=== PATIENT | male | born 1965 | race Caucasian/White ===

== ENCOUNTER 2018-12-03 20:32 | Emergency (ER) | payer SELFPAY ==
[2018-12-03] MEDS ORDERED: DIPHTH,PERTUSS(ACELL),TET 0.5 ML DISP.SYRIN IM ONE ×2 (20:45→21:42)
--- NOTE | 2018-12-03 20:45 | PDOC ---
Rapid Medical Evaluation Time Seen by Provider: 12/03/18 20:41 Medical Evaluation: Allergies Allergy/AdvReac Type Severity Reaction Status Date / Time No Known Allergies Allergy Verified 01/23/16 01:00 12/03/18 20:41 HPI: dog bite on L hand from unknown animal at park; PE: small puncture dorsum of L hand ORDERS: x-ray tetanus rabies series 12/03/18 20:42 12/03/18 20:44 Discharge Disposition - Diagnosis Dog bite - Referrals - Patient Instructions - Post Discharge Activity
[2018-12-03 20:50] VITALS: BP 121/81; PULSE 77; TEMP 98.6; BMI 28.3
[2018-12-03] MEDS ORDERED: RABIES IMMUNE GLOBULIN 300 UNITS/1 ML VIAL IM ONE (20:51)
[2018-12-03] MEDS ORDERED: RABIES VACCINE (PCEC)/PF 2.5 UNIT/VIAL IM ONE ×2 (20:51→21:42)
[2018-12-03] MEDS ORDERED: RABIES IMMUNE GLOBULIN 300 UNITS/1 ML VIAL ONE (21:42)
[2018-12-03] MEDS ORDERED: AMOX TR/POT CLAV 875MG/125MG TABLETS (FP) PO ONE (22:01)
[2018-12-03] MEDS ORDERED: AMOX TR/POT CLAV 875MG/125MG TABLETS (FP) ONE (22:11)
--- NOTE | 2018-12-03 22:13 | PDOC ---
History of Present Illness - General Chief Complaint: Bite Stated Complaint: DOG BITE Time Seen by Provider: 12/03/18 20:41 History Source: Patient - History of Present Illness Initial Comments: 12/03/18 22:32 Chief complaint: Dog bite Patient is a 53-year-old male with a history of elevated cholesterol who states he was at a park that he has been at before and was bitten by a dog, rafita that he went to pet. Pet was with an on but he did not know the technical publications writer. Patient came to the ER for further treatment. GENERAL/CONSTITUTIONAL: No fever, weakness. dizziness HEAD, EYES, EARS, NOSE AND THROAT: No change in vision. No ear pain or discharge. No sore throat. CARDIOVASCULAR: No chest pain RESPIRATORY: No shortness of breath or cough GASTROINTESTINAL: No pain, nausea, vomiting, diarrhea or constipation GENITOURINARY: No dysuria MUSCULOSKELETAL: No neck or back pain SKIN: No rash, + dog bite NEUROLOGIC: No headache, vertigo, loss of consciousness, or loss of sensation. GENERAL: The patient is awake, alert, and fully oriented, in no acute distress. HEAD: Normal with no signs of trauma. EYES: Pupils equal, round and reactive to light, sclera anicteric, conjunctiva clear. ENT: pharynx: no erythema, no exudate, uvula midline NECK: supple CHEST: clear, nontender, rr EXTREMITIES: Hand with puncture wound on the dorsum proximate middle, no other wounds, no erythema, no signs of infection, good range of motion, neurovascular intact. Rest of extremities, normal range of motion, no edema. NEUROLOGICAL: Normal speech, normal gait. SKIN: Warm, Dry Past History - Past Medical History Allergies/Adverse Reactions: Allergies Allergy/AdvReac Type Severity Reaction Status Date / Time No Known Allergies Allergy Verified 12/03/18 20:47 Home Medications: Ambulatory Orders Atorvastatin Ca [Lipitor] 10 mg PO HS 06/20/13 Ezetimibe [Zetia -] 10 mg PO DAILY 06/20/13 Oxycodone HCl/Acetaminophen [Percocet 5-325 mg Tablet] 1 - 2 tab PO Q6H #20 tab MDD 20 01/24/16 Amoxicillin/Potassium Clav [Augmentin 875-125 Tablet] 1 each PO BID #14 tablet 12/03/18 COPD: No Hypercholesterolemia: Yes - Surgical History Cholecystectomy: Yes - Immunization History Immunization Up to Date: Yes - Suicide/Smoking/Psychosocial Hx Smoking History: Never smoked Have you smoked in the past 12 months: No Number of Cigarettes Smoked Daily: 0 Information on smoking cessation initiated: No Hx Alcohol Use: No Drug/Substance Use Hx: No Substance Use Type: None Hx Substance Use Treatment: No *Physical Exam - Vital Signs Last Vital Signs Temp Pulse Resp BP Pulse Ox 98.6 F 77 18 121/81 96 12/03/18 20:47 12/03/18 20:47 12/03/18 20:47 12/03/18 20:47 12/03/18 20:47 Medical Decision Making - Medical Decision Making 12/03/18 22:34 53-year-old male who was bitten by a dog in the park, has seen the dog before, he went to pet the dog. Did not see the technical publications writer. Discussed with patient and protocol for rabies immunization. They filled out paperwork and they will call the police to assist in finding the dog, they will call the Department of Health are to discuss further. If they have any problems they will call me on Monday. Patient's tetanus was updated, x-ray was done which showed no foreign body or fracture. Patient was started on Augmentin and given wound care instructions Discussed issues, findings, results, applicable medications and treatments and follow-up. All these were understood and all questions were answered *DC/Admit/Observation/Transfer Diagnosis at time of Disposition: Dog bite - Prescriptions Prescriptions: Amoxicillin/Potassium Clav [Augmentin 875-125 Tablet] 1 each PO BID #14 tablet - Referrals - Patient Instructions Additional Instructions: Contact the police dept to assist finding the dog. call the dept of health at tomorrow to answer all your questions. Clean with soap and water 2-3 times daily, apply bacitracin take the augmentin 1 tablet every 12 hours for 7 days Have her reevaluated if redness, pus, fever or getting worse Followup with your doctor If you cannot get any answers by Monday, call here at [phone] after 10 AM and I will be happy to assist you - Post Discharge Activity
== END 2018-12-03 22:42 | disposition home or self-care (01) ==
LOC: JERFT 20:32
PROC: 3E0234Z Introduction of Serum, Toxoid and Vaccine into Muscle, Percutaneous Approach (ICD-10-PCS; principal; 2018-12-03)
DX: S61.452A Open bite of left hand, initial encounter (principal); W54.0XXA Bitten by dog, initial encounter; Y93.89 Activity, other specified; Y92.830 Public park as the place of occurrence of the external cause; Y99.8 Other external cause status
CPT/HCPCS: 73130-TC-LT-FY; 90715; 99282-25

== ENCOUNTER 2018-12-26 09:38 | Emergency (ER) | payer SELFPAY ==
[2018-12-26 09:44] VITALS: BP 139/80; PULSE 50; TEMP 97.5
[2018-12-26 10:00] VITALS: BMI 29.9
--- NOTE | 2018-12-26 10:00 | PDOC ---
History of Present Illness - General Chief Complaint: Bite Stated Complaint: DOG BITE Time Seen by Provider: 12/26/18 09:48 History Source: Patient Exam Limitations: No Limitations - History of Present Illness Initial Comments: 12/26/18 10:00 The patient is a 53 y/o M with no PMH who presents to the ER for rabies vaccinations s/p dog bite on 12/03/18. The police department, health department have not been able to track down the dog since the incident; therefore he meets criteria for rabies vaccinations. Spoke with Jess Dougherty at the Health Department to confirm. He finished his antibiotics as prescribed last time. Tetanus is UTD. He has no complaints at this time: A/P: Need for Rabies Vaccination Wound on the L hand is well healed with no evidence of celluitis Tetanus updated last visit Will initiate rabies vaccinations and immunoglobulin today as directed by the health department Pt given rabies schedule and he understands he needs to come back on schedule DC home I discussed the physical exam findings, ancillary test results and final diagnoses with the patient. I answered all of the patient's questions. The patient was satisfied with the care received and felt comfortable with the discharge plan and treatment plan. The Patient agrees to follow up with the primary care physician/specialist within 24-72 hours. Return precautions were given. Past History - Travel Traveled outside of the country in the last 30 days: No Close contact w/someone who was outside of country & ill: No - Past Medical History Allergies/Adverse Reactions: Allergies Allergy/AdvReac Type Severity Reaction Status Date / Time No Known Allergies Allergy Verified 12/26/18 09:44 Home Medications: Ambulatory Orders Atorvastatin Ca [Lipitor] 10 mg PO HS 06/20/13 Ezetimibe [Zetia -] 10 mg PO DAILY 06/20/13 Oxycodone HCl/Acetaminophen [Percocet 5-325 mg Tablet] 1 - 2 tab PO Q6H #20 tab MDD 20 01/24/16 Amoxicillin/Potassium Clav [Augmentin 875-125 Tablet] 1 each PO BID #14 tablet 12/03/18 COPD: No Hypercholesterolemia: Yes - Surgical History Cholecystectomy: Yes - Immunization History Immunization Up to Date: Yes - Psycho Social/Smoking Cessation Hx Smoking History: Never smoked Have you smoked in the past 12 months: No Number of Cigarettes Smoked Daily: 0 Hx Alcohol Use: Yes Drug/Substance Use Hx: No Substance Use Type: None Hx Substance Use Treatment: No Review of Systems - Review of Systems Able to Perform ROS?: Yes Comments:: 12/26/18 10:37 CONSTITUTIONAL: Absent: fever, chills, diaphoresis, generalized weakness, malaise, loss of appetite HEENT: Absent: rhinorrhea, nasal congestion, throat pain, throat swelling, difficulty swallowing, mouth swelling, ear pain, eye pain, visual Changes MUSCULOSKELETAL: Absent: myalgia, arthralgia, joint swelling SKIN: Present: bite Absent: rash, itching, pallor NEUROLOGIC: Absent: headache, focal weakness or paresthesias, dizziness, unsteady gait, seizure, mental status changes, bladder or bowel incontinence PSYCHIATRIC: Absent: anxiety, depression, suicidal or homicidal ideation, hallucinations. Is the patient limited Namibian proficient: No *Physical Exam - Vital Signs Last Vital Signs Temp Pulse Resp BP Pulse Ox 97.5 F L 50 L 16 139/80 96 12/26/18 09:41 12/26/18 09:41 12/26/18 09:41 12/26/18 09:41 12/26/18 09:41 - Physical Exam Comments: 12/26/18 10:44 GENERAL: The patient is awake, alert, and fully oriented, in no acute distress. HEAD: Normal with no signs of trauma. EYES: Pupils equal, round and reactive to light, extraocular movements intact, sclera anicteric, conjunctiva clear. EXTREMITIES: Normal range of motion, no edema. NEUROLOGICAL: Normal speech, normal gait. PSYCH: Normal mood, normal affect. SKIN: Healed pinpoint wound to the dorsal L hand. Warm, Dry, normal turgor, no rashes or lesions noted. Medical Decision Making - Medical Decision Making Medical Decision Making: Jess Dougherty Discharge - Discharge Information Problems reviewed: Yes Clinical Impression/Diagnosis: Need for rabies vaccination Dog bite Qualifiers: Encounter type: subsequent encounter Qualified Code(s): W54.0XXD - Bitten by dog, subsequent encounter Condition: Stable Disposition: HOME - Admission No - Follow up/Referral - Patient Discharge Instructions Patient Printed Discharge Instructions: DI for Rabies Vaccine Additional Instructions: Follow the rabies schedule attached to return for the rest of the rabies series Return to the ER sooner for any new or worsening symptoms Siga el horario de la cora adjunto para regresar para el markel de la serie de la cora. Regrese a la meche de emergencias antes por cualquier sntoma nuevo o que empeore Print Language: LATVIAN - Post Discharge Activity Work/Back to School Note: Rabies Vaccination F/U [facility].
[2018-12-26] MEDS ORDERED: RABIES VACCINE (PCEC)/PF 2.5 UNIT/VIAL IM ONE ×2 (10:20→10:42)
[2018-12-26] MEDS ORDERED: RABIES IMMUNE GLOBULIN 300 UNITS/1 ML VIAL IM ONE (10:20)
[2018-12-26] MEDS ORDERED: RABIES IMMUNE GLOBULIN 300 UNITS/1 ML VIAL ONE (10:42)
== END 2018-12-26 11:27 | disposition home or self-care (01) ==
LOC: JERFT 09:38
PROC: 3E0234Z Introduction of Serum, Toxoid and Vaccine into Muscle, Percutaneous Approach (ICD-10-PCS; principal; 2018-12-26)
DX: Z20.3 Contact with and (suspected) exposure to rabies (principal); W54.0XXD Bitten by dog, subsequent encounter
CPT/HCPCS: 90375; 90675; 99281-25

== ENCOUNTER 2018-12-29 10:25 | Emergency (ER) | payer SELFPAY ==
[2018-12-29 10:32] VITALS: BP 139/79; PULSE 62; TEMP 98.3; BMI 29.8
[2018-12-29] MEDS ORDERED: RABIES VACCINE (PCEC)/PF 2.5 UNIT/VIAL IM ONE ×2 (10:33→10:36)
--- NOTE | 2018-12-29 10:36 | PDOC ---
History of Present Illness - General Chief Complaint: Revisit,Rabies Injection Stated Complaint: RABIES VACCINE Time Seen by Provider: 12/29/18 10:32 History Source: Patient (Pt is here for rabies vaccines) Exam Limitations: No Limitations Past History - Travel Traveled outside of the country in the last 30 days: No Close contact w/someone who was outside of country & ill: No - Past Medical History Allergies/Adverse Reactions: Allergies Allergy/AdvReac Type Severity Reaction Status Date / Time No Known Allergies Allergy Verified 12/26/18 09:44 Home Medications: Ambulatory Orders Atorvastatin Ca [Lipitor] 10 mg PO HS 06/20/13 Ezetimibe [Zetia -] 10 mg PO DAILY 06/20/13 Oxycodone HCl/Acetaminophen [Percocet 5-325 mg Tablet] 1 - 2 tab PO Q6H #20 tab MDD 20 01/24/16 Amoxicillin/Potassium Clav [Augmentin 875-125 Tablet] 1 each PO BID #14 tablet 12/03/18 COPD: No Hypercholesterolemia: Yes - Surgical History Cholecystectomy: Yes - Immunization History Immunization Up to Date: Yes - Psycho Social/Smoking Cessation Hx Smoking History: Never smoked Have you smoked in the past 12 months: No Number of Cigarettes Smoked Daily: 0 Information on smoking cessation initiated: No Hx Alcohol Use: No Drug/Substance Use Hx: No Substance Use Type: None Hx Substance Use Treatment: No Review of Systems - Review of Systems Constitutional: No: Chills, Fever Musculoskeletal: No: Back Pain, Gout, Joint Pain Integumentary: No: Bruising, Dryness, Erythema, Rash *Physical Exam - Vital Signs Last Vital Signs Temp Pulse Resp BP Pulse Ox 98.3 F 62 16 139/79 98 12/29/18 10:27 12/29/18 10:27 12/29/18 10:27 12/29/18 10:27 12/29/18 10:27 - Physical Exam General Appearance: Yes: Nourished Extremity: positive: Other (L hand: no erythema or warmth/discharge in dorsum aspect) Integumentary: positive: Normal Color Neurologic: positive: firewall administrator II-XII NML intact, Fully Oriented, Alert Medical Decision Making - Medical Decision Making 12/29/18 10:36 s/p dog bite to L hand tetanus was updated pt is here for rabies vaccines no complaints he has finished abx course Discharge - Discharge Information Problems reviewed: No Clinical Impression/Diagnosis: Need for rabies vaccination Condition: Stable Disposition: HOME - Additional Discharge Information Prescription Drug Monitoring Program (I-STOP) results: I-STOP not reviewed - Follow up/Referral - Patient Discharge Instructions Patient Printed Discharge Instructions: DI for Rabies Vaccine Additional Instructions: Please return on 01/02/19 for your next vaccine - Post Discharge Activity
== END 2018-12-29 11:08 | disposition home or self-care (01) ==
LOC: JERFT 10:25
PROC: 3E0234Z Introduction of Serum, Toxoid and Vaccine into Muscle, Percutaneous Approach (ICD-10-PCS; principal; 2018-12-29)
DX: Z20.3 Contact with and (suspected) exposure to rabies (principal); W54.0XXD Bitten by dog, subsequent encounter
CPT/HCPCS: 90675; 99282-25

== ENCOUNTER 2019-01-02 16:30 | Emergency (ER) | payer SELFPAY ==
[2019-01-02] MEDS ORDERED: RABIES VACCINE (PCEC)/PF 2.5 UNIT/VIAL IM ONE ×2 (16:32→17:13)
--- NOTE | 2019-01-02 16:32 | PDOC ---
Rapid Medical Evaluation Time Seen by Provider: 01/02/19 16:31 Medical Evaluation: Allergies Allergy/AdvReac Type Severity Reaction Status Date / Time No Known Allergies Allergy Verified 12/26/18 09:44 01/02/19 16:31 CC: needs rabies vaccine PE: No focal findings Orders: rabies vaccine Patient will proceed to ER for further evaluation. Discharge Disposition - Diagnosis Need for rabies vaccination - Referrals - Patient Instructions - Post Discharge Activity
[2019-01-02 16:33] VITALS: BP 113/80; PULSE 69; TEMP 98; BMI 27.2
--- NOTE | 2019-01-02 17:10 | PDOC ---
History of Present Illness - General Chief Complaint: Revisit,Rabies Injection Stated Complaint: Rabies Vaccine Time Seen by Provider: 01/02/19 16:31 History Source: Patient Exam Limitations: No Limitations Past History - Travel Traveled outside of the country in the last 30 days: No Close contact w/someone who was outside of country & ill: No - Past Medical History Allergies/Adverse Reactions: Allergies Allergy/AdvReac Type Severity Reaction Status Date / Time No Known Allergies Allergy Verified 01/02/19 16:34 Home Medications: Ambulatory Orders Atorvastatin Ca [Lipitor] 10 mg PO HS 06/20/13 Ezetimibe [Zetia -] 10 mg PO DAILY 06/20/13 Oxycodone HCl/Acetaminophen [Percocet 5-325 mg Tablet] 1 - 2 tab PO Q6H #20 tab MDD 20 01/24/16 Amoxicillin/Potassium Clav [Augmentin 875-125 Tablet] 1 each PO BID #14 tablet 12/03/18 COPD: No Hypercholesterolemia: Yes - Surgical History Cholecystectomy: Yes - Immunization History Immunization Up to Date: Yes - Psycho Social/Smoking Cessation Hx Smoking History: Never smoked Have you smoked in the past 12 months: No Number of Cigarettes Smoked Daily: 0 Information on smoking cessation initiated: No Hx Alcohol Use: No Drug/Substance Use Hx: No Substance Use Type: None Hx Substance Use Treatment: No Review of Systems - Review of Systems Able to Perform ROS?: Yes Comments:: 01/02/19 17:08 CONSTITUTIONAL: Absent: fever, chills, diaphoresis, generalized weakness, malaise, loss of appetite HEENT: Absent: rhinorrhea, nasal congestion, throat pain, throat swelling, difficulty swallowing, mouth swelling, ear pain, eye pain, visual Changes CARDIOVASCULAR: Absent: chest pain, loss of consciousness, palpitations, irregular heart rate, peripheral edema RESPIRATORY: Absent: cough, shortness of breath, dyspnea with exertion, orthopnea, wheezing, stridor, hemoptysis GASTROINTESTINAL: Absent: abdominal pain, abdominal distension, nausea, vomiting, diarrhea, constipation, melena, hematochezia GENITOURINARY: Absent: dysuria, frequency, urgency, hesitancy, hematuria, flank pain, genital pain MUSCULOSKELETAL: Absent: myalgia, arthralgia, joint swelling SKIN: Absent: rash, itching, pallor HEMATOLOGIC/IMMUNOLOGIC: Absent: easy bleeding, easy bruising, lymphadenopathy, frequent infections ENDOCRINE: Absent: unexplained weight gain, unexplained weight loss, heat intolerance, cold intolerance NEUROLOGIC: Absent: headache, focal weakness or paresthesias, dizziness, unsteady gait, seizure, mental status changes, bladder or bowel incontinence PSYCHIATRIC: Absent: anxiety, depression, suicidal or homicidal ideation, hallucinations. Is the patient limited Montenegrin proficient: No *Physical Exam - Vital Signs Last Vital Signs Temp Pulse Resp BP Pulse Ox 98 F 69 18 113/80 99 01/02/19 16:32 01/02/19 16:32 01/02/19 16:32 01/02/19 16:32 01/02/19 16:32 - Physical Exam Comments: 01/02/19 17:08 GENERAL: The patient is awake, alert, and fully oriented, in no acute distress. HEAD: Normal with no signs of trauma. EYES: Pupils equal, round and reactive to light, extraocular movements intact, sclera anicteric, conjunctiva clear. EXTREMITIES: Normal range of motion, no edema. NEUROLOGICAL: Normal speech, normal gait. PSYCH: Normal mood, normal affect. SKIN: Warm, Dry, normal turgor, no rashes or lesions noted. Medical Decision Making - Medical Decision Making 01/02/19 17:08 The patient is a 53-year-old male who presents to the ER today for his third rabies vaccine. This is day 7 of treatment. He has no complaints at this time. A/P: Need for rabies vaccine Third dose of rabies vaccine given today. Last dose to be given 1 week from today. Discharge home I discussed the physical exam findings, ancillary test results and final diagnoses with the patient. I answered all of the patient's questions. The patient was satisfied with the care received and felt comfortable with the discharge plan and treatment plan. The Patient agrees to follow up with the primary care physician/specialist within 24-72 hours. Return precautions were given. Discharge - Discharge Information Problems reviewed: Yes Clinical Impression/Diagnosis: Need for rabies vaccination Condition: Stable Disposition: HOME - Admission No - Follow up/Referral - Patient Discharge Instructions Patient Printed Discharge Instructions: DI for Rabies Vaccine Additional Instructions: You received your third rabies vaccine today. Return on 01/11/19 for your last rabies vaccine. Return to the ER sooner for any new or worsening symptoms. - Post Discharge Activity
== END 2019-01-02 17:23 | disposition home or self-care (01) ==
LOC: JERFT 16:30
PROC: 3E0234Z Introduction of Serum, Toxoid and Vaccine into Muscle, Percutaneous Approach (ICD-10-PCS; principal; 2019-01-02)
DX: Z20.3 Contact with and (suspected) exposure to rabies (principal); Z23 Encounter for immunization; W54.0XXD Bitten by dog, subsequent encounter
CPT/HCPCS: 90675; 99281-25

== ENCOUNTER 2019-01-09 16:13 | Emergency (ER) | payer SELFPAY ==
[2019-01-09 16:16] VITALS: BP 126/82; PULSE 54; TEMP 97.5; BMI 28.1
[2019-01-09] MEDS ORDERED: RABIES VACCINE (PCEC)/PF 2.5 UNIT/VIAL IM ONE ×2 (16:26→16:44)
--- NOTE | 2019-01-09 16:29 | PDOC ---
History of Present Illness - General Chief Complaint: Revisit,Rabies Injection Stated Complaint: FOLLOW UP Time Seen by Provider: 01/09/19 16:26 - History of Present Illness Initial Comments: 01/09/19 16:27 CHIEF COMPLAINT: rabies vaccines HISTORY OF PRESENT ILLNESS: 53 yo M presents to the ER today for his last rabies vaccine s/p dog bite. This is day 14 of treatment. He has no complaints at this time. No recent travel or sick contacts. PAST MEDICAL HISTORY: Denies past medical history FAMILY HISTORY: Denies SOCIAL HISTORY:Denies tobacco, alcohol, illicit drug use. SURGICAL HISTORY: Denies ALLERGIES: No known drug allergies REVIEW OF SYSTEMS General/Constitutional: Denies fever or chills. Denies weakness, weight change. HEENT: Denies change in vision. Denies ear pain or discharge. Denies sore throat. Cardiovascular: Denies chest pain or shortness of breath. Respiratory: Denies cough, wheezing, or hemoptysis. Gastrointestinal: Denies nausea, vomiting, diarrhea or constipation. Denies rectal bleeding. Genitourinary: Denies dysuria, frequency, or change in urination. Musculoskeletal: Denies joint or muscle swelling or pain. Denies neck or back pain. Skin and breasts: Denies rash or easy bruising. Neurologic: Denies headache, vertigo, loss of consciousness, or loss of sensation. Psychiatric: Denies depression or anxiety. Endocrine: Denies increased thirst. Denies abnormal weight change. Hematologic/Lymphatic: Denies anemia, easy bleeding, or history of blood clots. Allergic/Immunologic: Denies hives or skin allergy. Denies latex allergy. PHYSICAL EXAM General Appearance: Well-appearing, appropriately dressed. No apparent distress , no intoxication. HEENT: EOMI, PERRLA, normal ENT inspection, normal voice, TMs normal, pharynx normal. No conjunctival pallor. No photophobia, scleral icterus. Neck: Supple. Trachea midline. No tenderness, rigidity, carotid bruit, stridor , lymphadenopathy, or thyromegaly. Respiratory/Chest: Lungs CTAB. No shortness of breath, chest tenderness, respiratory distress, accessory muscle use. No crackles, rales, rhonchi, stridor , wheezing, dullness Cardiovascular: RRR. S1, S2. No JVD, murmur, bradycardia, tachycardia. Vascular Pulses: Dorsalis-Pedis (R): 2+, Dorsalis-Pedis (L): 2+ Gastrointestinal/Abdominal: Normal bowel sounds. Abdomen soft, non-distended. No tenderness or rebound tenderness. No organomegaly, pulsatile mass, guarding , hernia, hepatomegaly, splenomegaly. Lymphatic: No adenopathy, tenderness. Musculoskeletal/Extremities: Normal inspection. FROM of all extremities, normal capillary refill. Pelvis Stable. No CVA tenderness. No tenderness to extremities, pedal edema, swelling, erythema or deformity. Integumentary: Appropriate color, dry, warm. No cyanosis, erythema, jaundice or rash Neurologic: production finisher II-XII intact. Fully oriented, alert. Appropriate mood/affect. Motor strength 5/5. No appreciable EOM palsy, facial droop or sensory deficit. 01/09/19 16:29 Past History - Past Medical History Allergies/Adverse Reactions: Allergies Allergy/AdvReac Type Severity Reaction Status Date / Time No Known Allergies Allergy Verified 01/09/19 16:16 Home Medications: Ambulatory Orders Atorvastatin Ca [Lipitor] 10 mg PO HS 06/20/13 Ezetimibe [Zetia -] 10 mg PO DAILY 06/20/13 Oxycodone HCl/Acetaminophen [Percocet 5-325 mg Tablet] 1 - 2 tab PO Q6H #20 tab MDD 20 01/24/16 Amoxicillin/Potassium Clav [Augmentin 875-125 Tablet] 1 each PO BID #14 tablet 12/03/18 COPD: No Hypercholesterolemia: Yes - Surgical History Cholecystectomy: Yes - Immunization History Immunization Up to Date: Yes - Psycho Social/Smoking Cessation Hx Smoking History: Never smoked Have you smoked in the past 12 months: No Number of Cigarettes Smoked Daily: 0 Hx Alcohol Use: No Drug/Substance Use Hx: No Substance Use Type: None Hx Substance Use Treatment: No *Physical Exam - Vital Signs Last Vital Signs Temp Pulse Resp BP Pulse Ox 97.5 F L 54 L 16 126/82 96 01/09/19 16:14 01/09/19 16:14 01/09/19 16:14 01/09/19 16:14 01/09/19 16:14 Medical Decision Making - Medical Decision Making 01/09/19 16:30 53 yo M presents to the ER today for his last rabies vaccine s/p dog bite. -rabies vaccine Return precautions given. Discharge - Discharge Information Problems reviewed: Yes Clinical Impression/Diagnosis: Need for rabies vaccination Condition: Stable Disposition: HOME - Admission No - Follow up/Referral - Patient Discharge Instructions Patient Printed Discharge Instructions: DI for Rabies Vaccine - Post Discharge Activity
== END 2019-01-09 16:53 | disposition home or self-care (01) ==
LOC: JERFT 16:13
PROC: 3E0234Z Introduction of Serum, Toxoid and Vaccine into Muscle, Percutaneous Approach (ICD-10-PCS; principal; 2019-01-09)
DX: Z23 Encounter for immunization (principal); Z20.3 Contact with and (suspected) exposure to rabies
CPT/HCPCS: 90675; 99281-25